=== PATIENT | female | born 1960 | race Asian ===

== ENCOUNTER 2021-09-29 08:43 | Outpatient (REF) | payer BC, SELFPAY ==
--- NOTE | ~2021-09-29 | MM_ITS ---
EXAMINATION: MM SCREENING DIGITAL BREAST TOMOSYNTHESIS, BILATERAL CLINICAL INFORMATION: Screening. Asymptomatic. The lifetime risk of breast cancer based on the Tyrer-Cuzick Model is 6%. COMPARISON: Mammography: 10/19/2018, 06/10/2016, 03/28/2014 TECHNIQUE: Digital breast tomosynthesis is performed in both the craniocaudal and mediolateral oblique views along with computer-aided detection (CAD). Synthesized 2D images are generated from the tomosynthesis. FINDINGS: The breasts are heterogeneously dense, which may obscure small masses (ACR BI-RADS breast composition Category c). There are no significant masses, abnormal calcifications, or other abnormalities. Parenchymal pattern is similar to prior studies and there is no developing density or interval architectural abnormality. Heavily calcified nodule mid 3:00 right breast is again noted, consistent with degenerating fibroadenoma. The axilla and skin contours are unremarkable. MM/MM tomosynthesis screening BI IMPRESSION: No mammographic evidence of malignancy. ASSESSMENT: BI-RADS 2: Benign RECOMMENDATION: Routine annual mammography screening. This patient's information was entered into a reminder system with a target due date for their next mammogram.
== END 2021-09-29 08:44 | disposition home or self-care (01) ==
LOC: HO.MAMMO 08:43
PROVIDERS: PCP Family Medicine; Visit Provider Family Medicine
DX: Z12.31 Encounter for screening mammogram for malignant neoplasm of breast (principal)
CPT/HCPCS: 77063; 77067

== ENCOUNTER 2023-10-28 10:18 | Outpatient (REF) | payer BC, SELFPAY ==
--- NOTE | ~2023-10-28 | MM_ITS ---
EXAMINATION: MM SCREENING DIGITAL BREAST TOMOSYNTHESIS, BILATERAL CLINICAL INFORMATION: Screening. Asymptomatic. COMPARISON: Mammography: This study is compared with prior exams dating back to 2017. TECHNIQUE: Digital breast tomosynthesis is performed in both the craniocaudal and mediolateral oblique views along with computer-aided detection (CAD). Synthesized 2D images are generated from the tomosynthesis. FINDINGS: There are scattered areas of fibroglandular density (ACR BI-RADS breast composition Category b). There are no significant masses, abnormal calcifications, or other abnormalities. There is an unchanged, coarse calcification in the upper inner quadrant of the right breast which is benign. MM/MM tomosynthesis screening BI IMPRESSION: No mammographic evidence of malignancy. ASSESSMENT: BI-RADS BI-RADS 2 - Benign Findings RECOMMENDATION: Routine annual mammography screening. 1 year F/U This examination should not preclude the clinical evaluation of a suspicious palpable abnormality. This patient's information was entered into a reminder system with a target due date for their next mammogram.
== END 2023-10-28 10:19 | disposition home or self-care (01) ==
LOC: HO.MAMMO 10:18
PROVIDERS: PCP Family Medicine; Visit Provider Family Medicine
DX: Z12.31 Encounter for screening mammogram for malignant neoplasm of breast (principal)
CPT/HCPCS: 77063; 77067

== ENCOUNTER → 2023-10-28 10:30 | Outpatient (BNV) | payer BC, SELFPAY | PROVIDERS: PCP Family Medicine; Visit Provider Radiology Diagnostic Radiology | DX: Z12.31 Encounter for screening mammogram for malignant neoplasm of breast (principal) | CPT/HCPCS: 77063; 77067 ==

== ENCOUNTER 2024-11-02 10:49 | Outpatient (REF) | payer BC, SELFPAY ==
--- OUTSIDE RECORDS SUMMARY | 2024-11-02 12:43 | XMS_ITS | Clinical Summary ---
Author Organization [facility] Address [address] [place] [address] Care Team Providers Care Office Coordinator Name Role Phone Bernard Acuna MD Primary Care Provider [phone] Allergies No known active allergies Medications No known medications Active Problems No known active problems Social History Tobacco Use Types Packs/Day Years Used Date Smoking Tobacco: Every Day Cigarettes 0.5 Alcohol Use Standard Drinks/Week Comments No 0 (1 standard drink = 0.6 oz pur e alcohol) Sex and Gender Information Value Date Recorded Sex Assigned at Not on file Gender Identity Not on file Sexual Orientation Not on file Last Filed Vital Signs Vital Sign Reading Time Taken Comments Blood Pressure 121/74 06/24/2015 11:44 AM EST Pulse 85 06/24/2015 11:44 AM EST Temperature 37 C (98.6 F) 06/24/2015 11:44 AM EST Respiratory Rate 18 06/24/2015 11:44 AM EST Oxygen Saturation 100% 06/24/2015 11:44 AM EST Inhaled Oxygen Concentration - - Weight 49.9 kg (110 lb) 06/24/2015 11:44 AM EST Height - - Body Mass Index - - Plan of Treatment Not on file Care Teams Office Coordinator Relationship Specialty Start Date End Date Bernard Acuna MD [address] [place] [address] [place] [address] PCP - General Internal Medicine 06/24/15
== END 2024-11-02 10:50 | disposition home or self-care (01) ==
LOC: HO.MAMMO 10:49
PROVIDERS: PCP Internal Medicine; Visit Provider Family Medicine
DX: Z12.31 Encounter for screening mammogram for malignant neoplasm of breast (principal)
CPT/HCPCS: 77063; 77067

== ENCOUNTER → 2024-11-02 11:00 | Outpatient (BNV) | payer BC, SELFPAY | PROVIDERS: PCP Internal Medicine; Visit Provider Internal Medicine | DX: Z12.31 Encounter for screening mammogram for malignant neoplasm of breast (principal) | CPT/HCPCS: 77063; 77067 ==

== ENCOUNTER 2025-01-04 10:18 | Outpatient (AMB) | payer BC, SELFPAY ==
--- NOTE | 2025-01-04 10:20 | MHC.PC.OV ---
Vital Signs 01/04/25 10:27 Height 5 ft Weight 138 lb BMI 26.9 BP 158/82 H Blood Pressure Location Rt brachial Position Sitting Respiration 16 Pulse 76 Pulse Source Pulse Oximeter Temp 97.3 F Pulse Oximetry (%) 97 Oxygen Delivery Method Room Air Intake Visit Reasons: Routine/ Dr Acuna / High BP Binder Chainstitch Required: No Accompanied by: Spouse Allergies No Known Allergies Allergy (Verified 01/04/25 10:20) Medication List - Last Reconciled 01/04/25 by HILTON Jensen diclofenac sodium 1% 2 grams topical QID escitalopram oxalate 5 mg PO DAILY magnesium, potassium aspartate 250-250 mg caps PO multivitamin 1 tab PO DAILY triamcinolone acetonide 0.1% 1 appl topical BID Tobacco use date assessed: 01/04/25 HPI HPI Comments History of Present Illness Details 64 year old female with GERD, MDD, Eczema, smoking and Insomnia here with to establish care. Patient states she stopped taking the Omeprazole because she did not feel it was helping. She continues to have abdominal bloating on and off but no pain or burning. She has not correlated it with any certain foods. She has been having increased symptoms of depression. Her PHQ 9 was 11. Her ELÍAS 7 was 5. She states she took medication in the past at night to help with sleep that was also suppose to help with her depression but she stopped it when her sleep got better. She would like a refill of Triamcinolone cream for her eczema. She continues to smoke daily and is not ready to quit. She has been having low back pain. She states it has been on and off and bothering her for the past 3 weeks. She points to area over her left SI joint. She denies fever, weakness or numbness and tingling. No history of trauma. She states it gets better when she does yoga. She is here today to follow up on BP which was elevated at her last few visits with Dr. Acuna. Her BP today was 158/82. She has not had labs in the past year. She had a mammogram in October. SHe had a cologuard 10/31 that was negative. She has not had a PAP in many years. She has not history of abnormal PAP. [facility] Medical History (Updated 01/04/25 @ 11:34 by HILTON Jensen) Abdominal bloating Cigarette smoker Eczema Elevated BP without diagnosis of hypertension Lipid screening Low back pain MDD (major depressive disorder), recurrent episode, moderate Social History Housing: House Patient Tobacco Use Status: Current everyday Tobacco user Tobacco use type: Cigarette Cigarettes Per Day: 10 e-Cigarette/Vaping Use: Never Used Questionnaire PHQ-9 Over the last 2 weeks, how often have you been bothered by any of the following problems? 1. Little interest or pleasure in doing things: nearly every day 2. Feeling down, depressed, or hopeless: nearly every day 3. Trouble falling or staying asleep, or sleeping too much: more than half the days 4. Feeling tired or having little energy: nearly every day 5. Poor appetite or overeating: not at all 6. Feeling bad about yourself - or that you are a failure or have let yourself or your family down: not at all 7. Trouble concentrating on things, such as reading the newspaper or watching television: not at all 8. Moving or speaking so slowly that other people could have noticed. Or the opposite - being so fidgety or restless that you have been moving around a lot more than usual: not at all 9. Thoughts that you would be better off or of hurting yourself in some way: not at all Total score: 11 Source: Developed by Drs. Lino Dutton, Judy Webb, Jameson Vargas and colleagues, with an educational clementine from [employer]. Thrive Questionnaire Date Thrive assessed: 01/04/25 I am a: Patient What is your living situation today?: I have a steady place to live Within the past 12 months, did the food you bought not last and you didn't have the money to get more?: Never true Within the past 12 months, did you worry whether your food would run out before you got money to buy more?: Never true Do you have trouble paying for medicines?: No Do you have trouble getting transportation to medical appointments?: No Do you have trouble paying your heating and electricity bill?: No Do you have trouble taking care of your child, family member or friend?: No Do you have trouble with day-to-day activities such as bathing, preparing meals, shopping, managing finances, etc.?: No Are you currently unemployed and looking for a job?: No Are you interested in more education?: No THRIVE Score: 0 AUDIT C Alcohol Use Questionnaire (AUDIT-C) 1. How often do you have a drink containing alcohol?: Never 3. How often do you have six or more drinks on one occasion?: Never Total Score: 0 ELÍAS-7 AMB Questionnaire ELÍAS-7 Date ELÍAS - 7 assessed: 01/04/25 Feeling nervous, anxious, or on edge: 0 = Not at all Not being able to stop or control worryin = Several days Worrying too much about different things: 1 = Several days Trouble relaxin = Not at all Being so restless that it is hard to sit still: 0 = Not at all Becoming easily annoyed or irritable: 3 = Nearly every day Feeling afraid as if something awful might happen: 0 = Not at all Total ELÍAS-7 score (0-4 normal; 5-9 mild; 10-14 moderate; 15-21 severe): 5 Source: Developed by Drs. Lino Dutton, Judy Webb, Jameson Vargas and colleagues, with an educational clementine from [employer]. Review of Systems Const Details: CONSTITUTIONAL No Chills No Fever No Weight loss No fatigue No generalized weakness SKIN Pruritic rash on right arm EYES No change in visual acuity No eye pain No red eye HEAD AND NECK No dizziness No headache No neck pain EAR/NOSE/MOUTH/THROAT No earache No sinus pain No congestion No hoarseness No sore throat RESPIRATORY No cough No shortness of breath No wheezing CARDIOVASCULAR No chest pain No dyspnea No palpitations No peripheral edema No Syncope GASTROINTESTINAL No abdominal pain Abdominal bloating No constipation No diarrhea No heartburn No loss of appetite No nausea No vomiting GENITOURINARY No dysuria No hematuria No urinary frequency No urinary urgency ENDOCRINE No cold intolerance No excessive hunger No excessive thirst No change in hair texture MUSCULOSKELETAL Left low back pain No joint pain No swelling No myalgias IMMUNOLOGICAL/ALLERGIC No congestion No itchy eyes No itchy nose No rhinitis No watery eyes HEMATOLOGIC No bleeding tendencies No bruising No fatigue LYMPHATIC No swollen lymph nodes NEUROLOGICAL No memory loss No paresthesias No focal weakness PSYCHIATRIC Anxiety Depression No sleeping problems No substance abuse No suicidal ideation Physical exam (Primary Care) Vital Signs: Last Vital Signs Temp 97.3 F 01/04/25 10:27 Pulse 76 01/04/25 10:27 Resp 16 01/04/25 10:27 BP 158/82 H 01/04/25 10:27 Pulse Ox 97 01/04/25 10:27 Oxygen Delivery Method Room Air 01/04/25 10:27 BMI result Body Mass Index 26.9 GENERAL Well developed, Well nourished, in no apparent distress HEENT Head-Normocephalic Eyes- PERRLA, EOMI, Conjuctiva clear, lids WNL Ears- Canals clear, TMs WNL Mouth/Throat-No lesions, no erythema, no exudate Neck- Supple, No lymphadenopathy, thyroid WNL RESPIRATORY Normal I:E, Clear to auscultation CARDIOVASCULAR Regular, rate and rhthym, No murmurs or rubs GASTROINTESTINAL Soft, nontender, normal bowel sounds, no masses MUSCULOSKELETAL Back-Normal ROM, Tender over left SI joint, Tender with motion, Straight leg raise negative, DTR 2+ symmetrical, Gait normal NEUROLOGICAL Gait normal PSYCHIATRIC Oriented to person, place and time Mood and affect -Depressed Appearance WNL Speech WNL Thought processes WNL Tobacco/Smoking Status: Tobacco use Status Tobacco use date assessed 01/04/25 01/04/25 10:30 Patient Tobacco Use Status Current everyday Tobacco 01/04/25 10:30 Tobacco use type Cigarette 01/04/25 10:30 e-Cigarette/Vaping Use Never Used 01/04/25 10:30 Coding Level of Care Code New Pt New Pt Level 4 (31146) Patient Type New Diagnoses Abdominal bloating R14.0 MDD (major depressive disorder), recurrent episode, moderate F33.1 Elevated BP without diagnosis of hypertension R03.0 Low back pain M54.50 Eczema L30.9 Cigarette smoker F17.210 Lipid screening Z13.220 Time Spent (min) 35 Comment Time spent on chart review, H&P, patient education, placing orders and arranging FU Assessment & Plan Assessment & Plan (1) Abdominal bloating: Code(s): R14.0 - Abdominal distension (gaseous) Category: Medical Plan: Will Monitor. Recommended patient keep a foot diary to look for causes of bloating. Patient to follow up as needed if symptoms persist or worsen. (2) MDD (major depressive disorder), recurrent episode, moderate: Code(s): F33.1 - Major depressive disorder, recurrent, moderate Category: Medical Plan: Treatment/evaluation options discussed with patient at length. Will start Escitalopram 5mg. Patient declined referral for therapy at this time. Patient to follow up in 6 weeks or sooner if symptoms persist or worsen. (3) Elevated BP without diagnosis of hypertension: Code(s): R03.0 - Elevated blood-pressure reading, without diagnosis of hypertension Category: Medical Plan: Will get labs. Discussed risks of untreated HTN. Patient to follow up in 6 weeks or sooner if needed (4) Low back pain: Code(s): M54.50 - Low back pain, unspecified Category: Medical Plan: Discussed SI joint pain with patient and . Will give Diclofenac gel to use PRN. Patient to follow up as needed if symptoms persist or worsen. (5) Eczema: Code(s): L30.9 - Dermatitis, unspecified Category: Medical Plan: Will refill Triamcinolone cream. It has worked well in the past. Patient to follow up as needed if symptoms persist or worsen. (6) Cigarette smoker: Code(s): F17.210 - Nicotine dependence, cigarettes, uncomplicated Category: Social Hx Plan: Patient is smoking cigarettes daily. We discussed health risks associated with cigarette smoking. Patient is not interested in quitting smoking at this time but was advised to cut back. (7) Lipid screening: Code(s): Z13.220 - Encounter for screening for lipoid disorders Category: Medical Plan: Will do lipid screening Orders: Orders Comprehensive Met. Panel Today F33.1 - Major depressive disorder, recurrent, moderate, R03.0 - Elevated blood-pressure reading, without diagnosis of hypertension TSH reflex Free T4 Today F33.1 - Major depressive disorder, recurrent, moderate, R03.0 - Elevated blood-pressure reading, without diagnosis of hypertension Lipid Panel Today R03.0 - Elevated blood-pressure reading, without diagnosis of hypertension, Z13.220 - Encounter for screening for lipoid disorders Complete Blood Count Auto Diff Today F33.1 - Major depressive disorder, recurrent, moderate, R03.0 - Elevated blood-pressure reading, without diagnosis of hypertension Vitamin D 25-OH Total Today R79.89 - Other specified abnormal findings of blood chemistry Medications: New triamcinolone acetonide 0.1% 1 appl topical BID 30 grams 2RF diclofenac sodium 1% 2 grams topical QID 100 grams 6RF for back pain escitalopram oxalate 5 mg PO DAILY 90 tabs 0RF for depression
[2025-01-04 10:27] VITALS: BP 158/82; PULSE 76; RESP 16; TEMP 36.3; O2SAT 97; BMI 26.9
--- OUTSIDE RECORDS SUMMARY | 2025-01-04 11:36 | XMS_ITS | Clinical Summary ---
Author Organization [facility] Address [address] [place] [address] Care Team Providers Care Ripper Operator Name Role Phone Bernard Acuna MD Primary Care Provider [phone] Allergies No known active allergies Medications No [...] of Treatment Not on file Care Teams Ripper Operator Relationship Specialty Start Date End Date Bernard Acuna MD [address] [place] [address] [place] [id number] PCP - General Internal Medicine 06/24/15
== END 2025-01-04 11:03 | disposition home or self-care (01) ==
LOC: HO.HMCHD 10:18
PROVIDERS: PCP Internal Medicine; Visit Provider Physician Assistant Medical
DX: R14.0 Abdominal distension (gaseous) (principal); F33.1 Major depressive disorder, recurrent, moderate; R03.0 Elevated blood-pressure reading, without diagnosis of hypertension; M54.50 Low back pain, unspecified; L30.9 Dermatitis, unspecified; F17.210 Nicotine dependence, cigarettes, uncomplicated; Z13.220 Encounter for screening for lipoid disorders

== ENCOUNTER 2025-02-13 10:30 | Outpatient (AMB) | payer BC, SELFPAY ==
[2025-02-13 08:40] VITALS: BP 146/84; PULSE 72; TEMP 36.5; O2SAT 99; BMI 26.9
--- NOTE | 2025-02-13 08:40 | MHC.PC.OV ---
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 Accompanied by: Self / Same As Patient Allergies No Known Allergies Allergy (Verified 02/13/25 08:40) Medication List - Last Reconciled 02/13/25 by HILTON Jensen diclofenac sodium 1% 2 grams topical QID escitalopram oxalate 5 mg PO DAILY escitalopram oxalate 5 mg PO DAILY magnesium, potassium aspartate 250-250 mg caps PO multivitamin 1 tab PO DAILY [id number]-wwhmmowah-NN 3.5-10,000-1 mg/mL-unit/mL-% 4 drps otic (ears) TID 7 days triamcinolone acetonide 0.1% 1 appl topical BID Tobacco use date assessed: 02/13/25 Fall risk assessment: No Falls in past year Last assessed Fall Risk: 02/13/25 Dental Screening Dental Screen Date: 02/13/25 Did you have a dental visit in the last 12 months?: Yes Did you have a dental problem in the last 6 months where you did not have access to dental care?: No HPI HPI Comments History of Present Illness Details 64 year old female with GERD, MDD, Eczema, smoking and Insomnia here with to follow up on depression, back pain, and for ear irritation. She did not complete labs from prior visit. The depression is currently managed with escitalopram 5 mg and the patient reports satisfaction with the current dosage. Patient's BP today was 146/84. This is an improvement but still not at goal. Patient states he abdominal pain has been better. She continues to have some bloating but it is better. The back pain continues, possibly due to occupational activities, but yoga provides some relief. The patient states she never got the diclofenac gel. The patient describes a sensation of water in the ears, with intermittent pain on one side, beginning two weeks prior. Use of Q-tips may have led to ear canal irritation. Fatigue is noted, with the patient working six days a week, which may be a contributing factor. [facility] Medical History (Updated 02/13/25 @ 12:30 by HILTON Jensen) Abdominal bloating Bilateral otitis externa Cigarette smoker Eczema Elevated BP without diagnosis of hypertension Fatigue Lipid screening Low back pain MDD (major depressive disorder), recurrent episode, moderate Family History (Updated 02/13/25 @ 10:41 by Liana Recinos MA) Mother No problems noted. Father No problems noted. Social History Housing: House Patient Tobacco Use Status: Current everyday Tobacco user Tobacco use type: Cigarette Cigarettes Per Day: 10 e-Cigarette/Vaping Use: Currently Using Current occupational status: employed Cognitive needs: No Hearing needs: No Vision needs: Yes (RX GLASSES) Questionnaire PHQ-9 Over the last 2 weeks, how often have you been bothered by any of the following problems? 1. Little interest or pleasure in doing things: not at all 2. Feeling down, depressed, or hopeless: not at all (Stable, she's on rx) 3. Trouble falling or staying asleep, or sleeping too much: not at all 4. Feeling tired or having little energy: not at all 5. Poor appetite or overeating: not at all 6. Feeling bad about yourself - or that you are a failure or have let yourself or your family down: not at all 7. Trouble concentrating on things, such as reading the newspaper or watching television: not at all 8. Moving or speaking so slowly that other people could have noticed. Or the opposite - being so fidgety or restless that you have been moving around a lot more than usual: not at all 9. Thoughts that you would be better off or of hurting yourself in some way: not at all Total score: 0 Depression Screening Interpretation: Negative Depression Screening Done: Yes Source: Developed by Drs. Lino Dutton, Judy Webb, Jameson Vargas and colleagues, with an educational clementine from [employer]. Thrive Questionnaire Date Thrive assessed: 02/13/25 I am a: Patient Within the past 12 months, did the food you bought not last and you didn't have the money to get more?: Never true Within the past 12 months, did you worry whether your food would run out before you got money to buy more?: Never true Do you have trouble paying for medicines?: No Do you have trouble getting transportation to medical appointments?: No Do you have trouble paying your heating and electricity bill?: No Do you have trouble taking care of your child, family member or friend?: No Do you have trouble with day-to-day activities such as bathing, preparing meals, shopping, managing finances, etc.?: No Are you currently unemployed and looking for a job?: No Are you interested in more education?: No THRIVE Score: 0 AUDIT C Alcohol Use Questionnaire (AUDIT-C) 1. How often do you have a drink containing alcohol?: Never 3. How often do you have six or more drinks on one occasion?: Never Total Score: 0 ELÍAS-7 AMB Questionnaire ELÍAS-7 Date ELÍAS - 7 assessed: 02/13/25 Feeling nervous, anxious, or on edge: 0 = Not at all Not being able to stop or control worryin = Not at all Worrying too much about different things: 0 = Not at all Trouble relaxin = Not at all Being so restless that it is hard to sit still: 0 = Not at all Becoming easily annoyed or irritable: 0 = Not at all Feeling afraid as if something awful might happen: 0 = Not at all Total ELÍAS-7 score (0-4 normal; 5-9 mild; 10-14 moderate; 15-21 severe): 0 Source: Developed by Drs. Lino Dutton, Judy Webb, Jameson Vargas and colleagues, with an educational clementine from [employer]. Review of Systems Const Details: CONSTITUTIONAL Reports fatigue. Denies recent changes in energy levels HEAD/NECK Negative EAR/NOSE/MOUTH/THROAT Reports sensation of water in ears and occasional pain. Denies recent infections. RESPIRATORY Negative CARDIOVASCULAR Negative GASTROINTESTINAL Abdominal pain- improved MUSCULOSKELETAL Reports persistent back pain, alleviated by yoga. Denies use of pain gel. NEUROLOGICAL Negative PSYCHIATRIC Reports improvement in depression with current medication. Denies need for dosage adjustment. Physical exam (Primary Care) Vital Signs: Last Vital Signs Temp 97.7 F 02/13/25 08:40 Pulse 72 02/13/25 08:40 BP 146/84 H 02/13/25 08:40 Pulse Ox 99 02/13/25 08:40 Oxygen Delivery Method Room Air 02/13/25 08:40 BMI result Body Mass Index 26.9 GENERAL Well developed, Well nourished, in no apparent distress HEENT Head-Normocephalic Ears- Canals inflammed, TMs WNL Mouth/Throat-No lesions, no erythema, no exudate Neck- Supple, No lymphadenopathy, thyroid WNL RESPIRATORY Normal I:E, Clear to auscultation CARDIOVASCULAR Regular, rate and rhythm, No murmurs or rubs GASTROINTESTINAL Soft, nontender, normal bowel sounds, no masses MUSCULOSKELETAL Back- nontender Joints- no pain swelling or deformity NEUROLOGICAL Gait normal PSYCHIATRIC Oriented to person, place and time Mood and affect WNL Appearance WNL Speech WNL Thought processes WNL Tobacco/Smoking Status: Tobacco use Status Tobacco use date assessed 02/13/25 02/13/25 08:41 Patient Tobacco Use Status Current everyday Tobacco 02/13/25 08:41 Tobacco use type Cigarette 02/13/25 08:41 e-Cigarette/Vaping Use Currently Using 02/13/25 08:41 PHQ-9: PHQ-9 Score PHQ-9: Total score 0 02/13/25 10:41 Depression Screening Interpretation: Negative Thrive Assessment: Date of Thrive Assessment Date Thrive assessed 02/13/25 02/13/25 08:41 Coding Level of Care Code Established Pt Est Pt Level 4 (78163) Patient Type Established Diagnoses Abdominal bloating R14.0 Elevated BP without diagnosis of hypertension R03.0 MDD (major depressive disorder), recurrent episode, moderate F33.1 Low back pain M54.50 Fatigue R53.83 Bilateral otitis externa H60.93 Time Spent (min) 30 Comment Time spent on chart review, medication reconciliation, H&P, patient education and orders. Assessment & Plan Assessment & Plan (1) Abdominal bloating: Code(s): R14.0 - Abdominal distension (gaseous) Category: Medical Plan: Improved. Will watch for now. Patient to follow up as needed if symptoms persist or worsen. (2) Elevated BP without diagnosis of hypertension: Comment: BP today was 146/84 Code(s): R03.0 - Elevated blood-pressure reading, without diagnosis of hypertension Category: Medical Plan: Will continue to monitor. Patient to follow up in 3 months or sooner if needed (3) MDD (major depressive disorder), recurrent episode, moderate: Code(s): F33.1 - Major depressive disorder, recurrent, moderate Category: Medical Plan: The patient's depression is managed with medication, and she is satisfied with the current dosage. No changes are needed at this time. Patient will continue current medications. Will monitor. Patient will follow up in 3 months. (4) Low back pain: Code(s): M54.50 - Low back pain, unspecified Category: Medical Plan: The patient experiences back pain, alleviated by yoga. She has not gotten the prescribed pain gel. Continued yoga and potential use of the gel are recommended. Will resend Diclofenac. Patient to follow up as needed if symptoms persist or worsen. (5) Fatigue: Code(s): R53.83 - Other fatigue Category: Medical Plan: The patient reports fatigue, possibly related to her work schedule. Blood work is ordered to check for anemia or thyroid issues. (6) Bilateral otitis externa: Code(s): H60.93 - Unspecified otitis externa, bilateral Category: Medical Plan: The patient reports ear irritation, and ear drops have been prescribed. She is advised to avoid using Q-tips to prevent further irritation. Patient to follow up as needed if symptoms persist or worsen. Plan During the visit, we discussed the management of the patient's depression, which is stable with current medication. We addressed her back pain, recommending continued yoga and use of pain gel. For ear irritation, ear drops were prescribed, and the patient was advised against using Q-tips. We also discussed her fatigue, and blood work was ordered to investigate potential causes such as anemia or thyroid dysfunction. A follow-up appointment is planned in three months unless lab results indicate the need for earlier intervention. Medications: New bjvagcda-[id number]-WY 3.5-10,000-1 mg/mL-unit/mL-% 4 drps otic (ears) TID 10 mL 0RF for ear infection 7 days diclofenac sodium 1% apply to single elbow, wrist or hand; for hand includes palm/fingers/back of hand 2 grams topical QID 100 grams 2RF for back pain Refilled escitalopram oxalate 5 mg PO DAILY 90 tabs 2RF for depression Patient Instructions: - Continue taking antidepressant medication as prescribed. - Engage in yoga exercises to help alleviate back pain. - Use the prescribed ear drops and avoid using Q-tips. - Complete blood work as ordered to check for anemia or thyroid issues. - Follow up in three months or sooner if lab results require.
--- OUTSIDE RECORDS SUMMARY | 2025-02-13 12:46 | XMS_ITS | Clinical Summary ---
Author Organization [facility] Address [address] [place] [address] Care Team Providers Care Jewish History Professor Name Role Phone Bernard Acuna MD Primary Care Provider [phone] Allergies No known active allergies Medications No [...] of Treatment Not on file Care Teams Jewish History Professor Relationship Specialty Start Date End Date Bernard Acuna MD [address] [place] [address] [place] [id number] PCP - General Internal Medicine 06/24/15
== END 2025-02-13 11:16 | disposition home or self-care (01) ==
LOC: HO.HMCHD 10:31
PROVIDERS: PCP Internal Medicine; Visit Provider Physician Assistant Medical
DX: R14.0 Abdominal distension (gaseous) (principal); R03.0 Elevated blood-pressure reading, without diagnosis of hypertension; F33.1 Major depressive disorder, recurrent, moderate; M54.50 Low back pain, unspecified; R53.83 Other fatigue; H60.93 Unspecified otitis externa, bilateral

== ENCOUNTER 2025-02-13 11:28 | Outpatient (REF) | payer BC, SELFPAY ==
[2025-02-13 13:10] LABS: MANUAL DIFF FLAG NO
[2025-02-13 13:13] LABS: Hematocrit 41.5 % (37.0-47.0); Hemoglobin 13.7 g/dl (12.0-16.0); Imm Gran Abs Auto 0.02 X10*3/uL (0.00-0.03); Imm Gran Pct Auto 0.3 % (0.0-0.4); Lymphocytes Absolute Auto 2.7 X10*3/uL (1.2-4.9); Mean Corpuscular HGB Conc 33.0 g/dl (31.0-35.0); Mean Corpuscular Hemoglobin 27.8 pg (27.0-33.0); Mean Corpuscular Volume 84.3 fL (80.0-98.0); NRBC Abs Auto 0.000 X10*3/uL (0.0-0.012); NRBC Pct Auto 0.0 /100WBC (0.0-0.2); Platelet Count 356 X10*3/uL (160-400); Red Blood Count 4.92 X10*6/uL (4.20-5.50); White Blood Count 7.5 X10*3/uL (4.8-10.8)
[2025-02-13 13:29] LABS: Alanine Aminotransferase 58 U/L (0-31); Albumin Level 4.5 g/dL (3.5-5.0); Alkaline Phosphatase 90 U/L (39-117); Anion Gap 10 (12-20); Aspartate Amino Transferase 31 U/L (5-31); Blood Urea Nitrogen 10 mg/dL (9-16); Calcium 9.5 mg/dL (8.4-10.2); Carbon Dioxide 28 mmol/L (22-29); Chloride 107 mmol/L (96-108); Cholesterol 229 mg/dL (<200); Estimated Glomerular Filt Rate > 60; HDL Cholesterol 45 mg/dL (>40); Potassium 4.3 mmol/L (3.3-5.1); Sodium 141 mmol/L (135-145); Total Protein 7.4 g/dL (6.5-8.0); Triglycerides 259 mg/dL (<150)
== END 2025-02-13 11:29 | disposition home or self-care (01) ==
LOC: HO.10HDL 11:28
PROVIDERS: Visit Provider Physician Assistant Medical
DX: Z13.220 Encounter for screening for lipoid disorders (principal); R03.0 Elevated blood-pressure reading, without diagnosis of hypertension; F33.1 Major depressive disorder, recurrent, moderate; R79.89 Other specified abnormal findings of blood chemistry
CPT/HCPCS: 36415; 80053; 80061; 82306; 84443; 85025

== ENCOUNTER 2025-03-30 11:07 | Outpatient (AMB) | payer BC, SELFPAY ==
[2025-03-30 10:28] VITALS: BP 138/80; PULSE 86; TEMP 36.4; O2SAT 98; BMI 27.5
--- NOTE | 2025-03-30 10:28 | MHC.PC.OV ---
Vital Signs 03/30/25 10:28 Height 5 ft Weight 141 lb BMI 27.5 BP 138/80 Blood Pressure Location Lt brachial Position Sitting Pulse 86 Pulse Source Pulse Oximeter Temp 97.6 F Temp Source Temporal Artery Scan Pulse Oximetry (%) 98 Oxygen Delivery Method Room Air Intake Visit Reasons: 6 MONTH FOLLOW UP-[facility] PT Independent Consultant Required: No Accompanied by: Self / Same As Patient Allergies No Known Allergies Allergy (Verified 03/30/25 10:32) Medication List - Last Reconciled 03/30/25 by Zafar Cisneros MD cholecalciferol (vitamin D3) 1,250 mcg PO QWEEK 12 weeks escitalopram oxalate 5 mg PO DAILY magnesium, potassium aspartate 250-250 mg caps PO multivitamin 1 tab PO DAILY triamcinolone acetonide 0.1% 1 appl topical BID Tobacco use date assessed: 03/30/25 Fall risk assessment: No Falls in past year Last assessed Fall Risk: 03/30/25 Dental Screening Dental Screen Date: 03/30/25 Did you have a dental visit in the last 12 months?: Yes Did you have a dental problem in the last 6 months where you did not have access to dental care?: No HPI HPI Comments History of Present Illness Details History of Present Illness The patient is a 64-year-old individual presenting for a general health maintenance visit. The patient's current medications include citalopram 5 mg for mood, a multivitamin, magnesium, and triamcinolone. Based on recent blood work, the patient has hypercholesterolemia with a total cholesterol of 229 and LDL of 133. The patient reports eating late at night due to working a second shift and consumes fats and processed foods. Lab results also indicated low vitamin D levels. The patient has a significant smoking history, consuming 10 cigarettes per day for over 30 to 40 years. A prior attempt to quit smoking using Chantix was made. Medical History: - Hypercholesterolemia - Vitamin D deficiency - Tobacco use disorder (30-40 year history) - Mood disorder Medications: - Citalopram 5 mg daily for mood - Multivitamin - Magnesium - Triamcinolone Diagnostic Results: - Blood pressure: 138/80 mmHg. - Labs: Total cholesterol 229, LDL cholesterol 133. - Labs: Vitamin D level was low. Social History - Employment: The patient works a second shift. - Substance Use: The patient smokes 10 cigarettes per day and has for over 30-40 years. - Diet: The patient reports eating at night due to work schedule, and consumes fats and processed foods. - Social Support: The patient has family available as a support system. [facility] Medical History (Updated 03/30/25 @ 11:43 by Zafar Cisneros MD) Skin lesion Vitamin D deficiency Hyperlipidemia Tobacco use disorder Bilateral otitis externa Fatigue Low back pain Cigarette smoker Abdominal bloating Eczema Lipid screening Elevated BP without diagnosis of hypertension MDD (major depressive disorder), recurrent episode, moderate Family History (Updated 03/30/25 @ 11:22 by Liana Recinos MA) Mother No problems noted. Father No problems noted. Social History Housing: House Patient Tobacco Use Status: Current everyday Tobacco user Tobacco use type: Cigarette Cigarettes Per Day: 10 e-Cigarette/Vaping Use: Currently Using service: No Current occupational status: employed Cognitive needs: No Hearing needs: No Vision needs: Yes (RX GLASSES) Questionnaire PHQ-9 Over the last 2 weeks, how often have you been bothered by any of the following problems? 1. Little interest or pleasure in doing things: not at all 2. Feeling down, depressed, or hopeless: not at all 3. Trouble falling or staying asleep, or sleeping too much: not at all 4. Feeling tired or having little energy: not at all 5. Poor appetite or overeating: not at all 6. Feeling bad about yourself - or that you are a failure or have let yourself or your family down: not at all 7. Trouble concentrating on things, such as reading the newspaper or watching television: not at all 8. Moving or speaking so slowly that other people could have noticed. Or the opposite - being so fidgety or restless that you have been moving around a lot more than usual: not at all 9. Thoughts that you would be better off or of hurting yourself in some way: not at all Total score: 0 Depression Screening Interpretation: Negative Depression Screening Done: Yes Source: Developed by Drs. Lino Dutton, Judy Webb, Jameson Vargas and colleagues, with an educational clementine from [employer]. Thrive Questionnaire Date Thrive assessed: 03/30/25 I am a: Patient Within the past 12 months, did the food you bought not last and you didn't have the money to get more?: Never true Within the past 12 months, did you worry whether your food would run out before you got money to buy more?: Never true Do you have trouble paying for medicines?: No Do you have trouble getting transportation to medical appointments?: No Do you have trouble paying your heating and electricity bill?: No Do you have trouble taking care of your child, family member or friend?: No Do you have trouble with day-to-day activities such as bathing, preparing meals, shopping, managing finances, etc.?: No Are you currently unemployed and looking for a job?: No Are you interested in more education?: No THRIVE Score: 0 AUDIT C Alcohol Use Questionnaire (AUDIT-C) 2. How many drinks containing alcohol do you have on a typical day when you are drinking?: 1 or 2 3. How often do you have six or more drinks on one occasion?: Never Total Score: 0 ELÍAS-7 AMB Questionnaire ELÍAS-7 Date ELÍAS - 7 assessed: 03/30/25 Feeling nervous, anxious, or on edge: 0 = Not at all Not being able to stop or control worryin = Not at all Worrying too much about different things: 0 = Not at all Trouble relaxin = Not at all Being so restless that it is hard to sit still: 0 = Not at all Becoming easily annoyed or irritable: 0 = Not at all Feeling afraid as if something awful might happen: 0 = Not at all Total ELÍAS-7 score (0-4 normal; 5-9 mild; 10-14 moderate; 15-21 severe): 0 Source: Developed by Drs. Lino Dutton, Judy Webb, Jameson Vargas and colleagues, with an educational clementine from [employer]. Review of Systems Narrative Review of Systems - Constitutional: Reports feeling well. - Integumentary: Reports a growth on the back. All systems reviewed & are unremarkable except as reviewed in HPI and above Physical exam (Primary Care) Vital Signs: Last Vital Signs Temp 97.6 F 03/30/25 10:28 Pulse 86 03/30/25 10:28 BP 138/80 03/30/25 10:28 Pulse Ox 98 03/30/25 10:28 Oxygen Delivery Method Room Air 11/21/25 10:28 BMI result Body Mass Index 27.5 Tobacco/Smoking Status: Tobacco use Status Tobacco use date assessed 03/30/25 03/30/25 10:32 Patient Tobacco Use Status Current everyday Tobacco 03/30/25 10:29 Tobacco use type Cigarette 03/30/25 10:29 e-Cigarette/Vaping Use Currently Using 03/30/25 10:29 Are you ready to quit: Yes Tobacco cessation counseling provided: Yes Relapse Prevention: discussed the importance of a supportive environment and discussed extending NRT Number of minutes spent counselin CPT code: 79589 - 4-10 Minutes PHQ-9: PHQ-9 Score PHQ-9: Total score 0 03/30/25 11:22 Depression Screening Interpretation: Negative Thrive Assessment: Date of Thrive Assessment Date Thrive assessed 03/30/25 03/30/25 11:22 Narrative Physical Exam General: +Alert and oriented, Well nourished, No acute distress. Eye: Pupils are equal, round and reactive to light, Intact accommodation, Extraocular movements are intact, Normal conjunctiva, Vision unchanged. HENT: Normocephalic, Atraumatic, Tympanic membranes are clear, Normal hearing, Oral mucosa is moist, No pharyngeal erythema, Ear canals patent. Respiratory: Lungs CTA bilaterally, No wheeze, Respirations are non-labored. Cardiovascular: Regular rate, Regular rhythm, S1 auscultated, S2 auscultated, No murmur, Good pulses equal in all extremities, Normal peripheral perfusion, No edema. Gastrointestinal: Soft, Non-tender, Non-distended, Normal bowel sounds, No organomegaly. Musculoskeletal: Normal range of motion, Normal strength, No tenderness, No swelling, No deformity, Normal gait. Integumentary: Warm, Dry, [place], Intact. Noted a mole on the back, changing shape, recommend seeing a hotel staff member. Neurologic: Alert, Oriented, Normal sensory, Normal motor function, No focal defects, Cranial Nerves II-XII are grossly intact, Normal deep tendon reflexes. Psychiatric: Cooperative, Appropriate mood & affect, Normal judgment. Coding Level of Care Code Est Pt Level 4 (93178) Complex visit Add On G2211 Diagnoses Other hyperlipidemia E78.49 Hyperlipidemia type: other hyperlipidemia Vitamin D deficiency E55.9 Tobacco use disorder F17.200 Skin lesion L98.9 MDD (major depressive disorder), recurrent episode, moderate F33.1 Additional Codes Vital Signs *Quality* - CPT code: 64699 - 4-10 Minutes ([id number]) Assessment & Plan Assessment & Plan (1) Hyperlipidemia: Comment: - Recent labs showed a total cholesterol of 229 and LDL of 133. - The patient's diet contributes to this, including eating late at night. - Plan is to start atorvastatin 10 mg daily. - Extensive counseling was provided on the importance of dietary changes, including limiting fats and processed foods, and that medication alone is insufficient. Code(s): E78.5 - Hyperlipidemia, unspecified Category: Medical Qualifiers: Hyperlipidemia type: other hyperlipidemia Qualified Code(s): E78.49 - Other hyperlipidemia (2) Vitamin D deficiency: Comment: - Labs show low vitamin D levels. - Plan is to start vitamin D supplementation, one capsule weekly for 12 weeks. - A prescription has been sent to the pharmacy. Code(s): E55.9 - Vitamin D deficiency, unspecified Category: Medical (3) Tobacco use disorder: Comment: - The patient has a 30-40 year history of smoking 10 cigarettes per day. - The risks of continued smoking, including lung cancer, emphysema, and heart disease, were discussed. - A previous quit attempt with Chantix was unsuccessful. - The plan is to start nicotine patches daily for 28 days to aid cessation and a low-dose CT scan will be ordered for lung cancer screening. Code(s): F17.200 - Nicotine dependence, unspecified, uncomplicated Category: Medical (4) Skin lesion: Comment: - A mole on the back was noted to be changing in shape. - A referral will be made to a hotel staff member for further evaluation. Code(s): L98.9 - Disorder of the skin and subcutaneous tissue, unspecified Category: Medical (5) MDD (major depressive disorder), recurrent episode, moderate: Comment: - Stable on ecitalopram 5mg Daily Code(s): F33.1 - Major depressive disorder, recurrent, moderate Category: Medical Plan: Health Maintenance; - Counseled on dietary changes, including a low-fat and low-processed food diet, to manage hypercholesterolemia. - Provided extensive counseling on smoking cessation, reviewing the risks of continued smoking and the benefits of quitting. - Recommended a low-dose CT scan for lung cancer screening due to the patient's extensive smoking history. - Recommended dermatology consultation for evaluation of a changing mole on the back. - The patient is advised to follow up in 6 months. Patient was informed and verbally consented to the use of an ambient scribe for clinic note documentation during this visit. Vital signs reviewed. Comprehensive history, review of systems, and physical exam completed. Medications, allergies, and problem list reviewed and updated. Counseling provided on nutrition, regular exercise, sleep hygiene, and moderation of alcohol use. Discussed age-appropriate screenings (mammogram, colonoscopy, Pap, bone density) and immunizations (flu, COVID, shingles, Tdap). Screened for depression, fall risk, and home safety; no current concerns. Discussed stress management, dental and vision care, and importance of ongoing preventive follow-up. Routine labs ordered for metabolic and lipid screening. Patient educated on healthy lifestyle and agrees with the plan. Plan I reviewed the patient's blood work which showed a total cholesterol of 229 and LDL of 133. I explained that I am starting atorvastatin 10 mg daily but emphasized that dietary changes, such as reducing fats and processed foods, are essential for management. I also informed the patient of a vitamin D deficiency and prescribed a weekly supplement for 12 weeks. We had an extensive discussion regarding the patient's 30-40 year history of smoking 10 cigarettes per day. I strongly advised complete cessation, outlining the significant risks including lung cancer, emphysema, heart disease, and damage to the sense of taste and smell. To aid this, I prescribed nicotine patches for daily use over 28 days and recommended a low-dose CT scan for lung cancer screening. During the exam, I noted a mole on the patient's back that appears to be changing shape and recommended a visit to a hotel staff member for evaluation. We agreed to a follow-up visit in 6 months. Orders: Referrals Lung Cancer Screening Referral F17.200 - Nicotine dependence, unspecified, uncomplicated Medications: New cholecalciferol (vitamin D3) 1,250 mcg PO QWEEK 12 tabs 0RF 12 weeks E55.9 - Vitamin D deficiency, unspecified atorvastatin (Lipitor) 10 mg PO BEDTIME 90 tabs 0RF nicotine 1 patch transdermal DAILY 28 ea 0RF Patient Instructions: - Take one atorvastatin 10 mg pill each day for your high cholesterol. - It is very important that you also change your diet by eating fewer fatty and processed foods. - Take one vitamin D capsule once a week for the next 12 weeks. The prescription has been sent to your pharmacy. - You must stop smoking. It is very dangerous for your health and can cause lung cancer and breathing problems. - Use one nicotine patch on your arm every day for 28 days. This will help you stop craving cigarettes. Do not smoke while using the patch. - We are ordering a special lung scan (a low-dose CT) to check for any problems caused by smoking. - Please make an appointment with a skin doctor (hotel staff member) to have the mole on your back looked at. - Please schedule a follow-up appointment to come back in 6 months.
--- OUTSIDE RECORDS SUMMARY | 2025-03-30 11:59 | XMS_ITS | Clinical Summary ---
Author Organization [facility] Address [address] [place] [address] Care Team Providers Care Boat Officer Name Role Phone Bernard Acuna MD Primary Care Provider [phone] Allergies No known active allergies Medications No [...] of Treatment Not on file Care Teams Boat Officer Relationship Specialty Start Date End Date Bernard Acuna MD [address] [place] [address] [place] [id number] PCP - General Internal Medicine 06/24/15
== END 2025-03-30 11:38 | disposition home or self-care (01) ==
LOC: HO.HMCHD 11:07
PROVIDERS: PCP Family Medicine; Visit Provider Student in an Organized Health Care Education/Training Program
DX: E78.49 Other hyperlipidemia (principal); E55.9 Vitamin D deficiency, unspecified; F17.200 Nicotine dependence, unspecified, uncomplicated; L98.9 Disorder of the skin and subcutaneous tissue, unspecified; F33.1 Major depressive disorder, recurrent, moderate